=== PATIENT | male | born 1980 | race Caucasian/White ===

== ENCOUNTER 2020-08-25 10:29 | Emergency (ER) | payer SELFPAY ==
[~2020-08-25] VITALS: Ht 180.3 cm; Wt 76.7 kg
[2020-08-25 10:31] VITALS: Ht 180.3 cm; Wt 76.7 kg
[2020-08-25 13:25] VITALS: BP 146/94
== END 2020-08-25 13:25 | disposition home or self-care (01) ==
LOC: ED 10:29
DX: J40 Bronchitis, not specified as acute or chronic (principal); Z20.828 Contact with and (suspected) exposure to other viral communicable diseases
CPT/HCPCS: U0003